=== PATIENT | male | born 1985 | race American Indian/Alaskan Native ===

== ENCOUNTER 2018-11-23 10:49 | Emergency (ER) | payer SELFPAY ==
[2018-11-23 11:03] VITALS: BP 119/69; PULSE 70; RESP 18; TEMP 98; O2SAT 99
[2018-11-23] MEDS ORDERED: Sodium Chloride 0.9% 1,000 ML IV ONE (11:42)
[2018-11-23] MEDS ORDERED: Sodium Chloride 0.9% 1,000 ML ONE (11:50)
[2018-11-23 12:17] LABS: BASO % 0.4 % (0.0-2.0); EOS # 0.1 K/uL (0.0-0.7); EOS % 1.5 % (0.0-4.0); HEMOGLOBIN 14.1 g/dL (12.0-18.0); LYMPH # 1.6 K/uL (1.0-4.3); LYMPH % 19.8 % (20.0-40.0); MEAN CELL VOLUME 92.6 fL (80.0-94.0); MEAN CORPUSCULAR HEMOGLOBIN 29.8 pg (27.0-31.0); MEAN CORPUSCULAR HGB CONC 32.1 g/dL (33.0-37.0); MEAN PLATELET VOLUME 9.2 fL (7.2-11.7); MONO # 0.6 K/uL (0.0-0.8); MONO % 7.7 % (0.0-10.0); NEUT # 5.6 K/uL (1.8-7.0); NEUT % 70.6 % (50.0-75.0); NRBC % 0.1 % (0.0-2.0); RBC 4.74 Mil/uL (4.40-5.90); RED CELL DISTRIBUTION WIDTH 14.2 % (11.5-14.5)
--- NOTE | 2018-11-23 12:26 | C.PDOC ---
History Of Present Illness Patient is a 33 year old male, mukund, who presents to ED for intermittent abdominal pain with associated nausea that began 3 days ago. Patient states that he never has had these symptoms before. He admits to drinking alcohol this week end. He denies any vomiting, diarrhea, or dysuria. Time Seen by Provider: 11/23/18 11:03 Chief Complaint (Nursing): Abdominal Pain History Per: Patient, EMS History/Exam Limitations: no limitations Onset/Duration Of Symptoms: Days (3) Current Symptoms Are (Timing): Still Present Associated Symptoms: Nausea. denies: Vomiting, Diarrhea, Urinary Symptoms Recent travel outside of the [place]: No Additional History Per: Patient, EMS Past Medical History Reviewed: Historical Data, Nursing Documentation, Vital Signs Vital Signs: Last Vital Signs Temp 98 F 11/23/18 10:57 Pulse 70 11/23/18 10:57 Resp 18 11/23/18 10:57 BP 119/69 11/23/18 10:57 Pulse Ox 99 11/23/18 10:57 - Medical History PMH: No Chronic Diseases Surgical History: Cholecystectomy - [facility] Procedures EXTIRPATION OF MATTER FROM COMMON BILE DUCT, ENDO (10/07/15) RELEASE PERITONEUM, PERCUTANEOUS ENDOSCOPIC APPROACH (10/07/15) RESECTION OF GALLBLADDER, PERCUTANEOUS ENDOSCOPIC APPROACH (10/07/15) ROBOTIC ASSISTED PROCEDURE OF TRUNK, PERC ENDO APPROACH (10/07/15) Family History: States: Unknown Family Hx - Social History Hx Tobacco Use: Yes Hx Alcohol Use: No Hx Substance Use: Yes (PCP use on 10/04/2012) - Immunization History Hx Tetanus Toxoid Vaccination: Yes Hx Influenza Vaccination: No Hx Pneumococcal Vaccination: No Review Of Systems Gastrointestinal: Positive for: Nausea, Abdominal Pain (intermittent). Negative for: Vomiting, Diarrhea Genitourinary: Negative for: Dysuria Physical Exam - Physical Exam Appears: Non-toxic, Other (mild discomfort) Skin: Normal Color, Warm, Dry Head: Atraumatic, Normacephalic Oral Mucosa: Moist Neck: Normal ROM, Supple Chest: Symmetrical, No Deformity Cardiovascular: Rhythm Regular, No Murmur Respiratory: Normal Breath Sounds, No Rales, No Rhonchi, No Wheezing Gastrointestinal/Abdominal: Tenderness (Epigastric and LUQ ), No Guarding, No Rebound, No Other (McBurney's and Mendoza's ) Extremity: Normal ROM Neurological/Psych: Oriented x3, Normal Speech, Normal Cognition ED Course And Treatment - Laboratory Results Result Diagrams: 11/23/18 12:11 11/23/18 12:11 O2 Sat by Pulse Oximetry: 99 (on RA) Pulse Ox Interpretation: Normal Progress Note: Plan: Labs. Urinalysis. IV Fluids. Pepcid 20mg IVP Disposition Counseled Patient/Family Regarding: Studies Performed, Diagnosis, Need For Followup, Rx Given - Disposition Referrals: [facility] [Outside] Disposition: HOME/ ROUTINE Disposition Time: 14:00 Condition: STABLE Additional Instructions: FOLLOW UP WITH YOUR DOCTOR/CLINIC IN 1-2 DAYS USE MEDICATIONS DIRECTED RETURN TO ER IF SYMPTOMS WORSEN Prescriptions: Famotidine [Pepcid] 20 mg PO BID PRN #15 tab PRN Reason: abdominal Instructions: Stomach Ache and Stomach Upset Forms: [employer] (Kyrgyz) Print Language: BOTSWANAN - Clinical Impression Clinical Impression: Epigastric abdominal pain - Scribe Statement Kyra Rodriguez All medical record entries made by the Scribe were at my direction and perso dalila dictated by me. I have reviewed the chart and agree that the record accurately reflects my personal performance of the history, physical exam, medical decision making, and the department course for this patient. I have also personally directed, reviewed, and agree with the discharge instructions and disposition.
[2018-11-23 12:27] LABS: URINE BILIRUBIN NEGATIVE (NEGATIVE); URINE BLOOD NEGATIVE (NEGATIVE); URINE CLARITY Hazy (Clear); URINE COLOR Yellow (YELLOW); URINE GLUCOSE (UA) NORMAL (Normal); URINE LEUKOCYTE ESTERASE NEG Leu/uL (Negative); URINE PROTEIN NEGATIVE (NEGATIVE); URINE UROBILINOGEN NORMAL mg/dL (0.2-1.0)
[2018-11-23 12:31] LABS: ALB/GLOB RATIO 1.2 (1.0-2.1); ALBUMIN 3.9 g/dL (3.5-5.0); ALT/SGPT 204 U/L (21-72); AST/SGOT 138 U/L (17-59); BLOOD UREA NITROGEN 7 mg/dL (9-20); CALCIUM 8.6 mg/dl (8.6-10.4); GFR NON-AFRICAN AMERICAN > 60; LIPASE 80 U/L (23-300)
== END 2018-11-23 14:19 | disposition home or self-care (01) ==
LOC: C.ER 10:49
DX: R10.13 Epigastric pain (principal)
CPT/HCPCS: 80053; 81001; 83690; 85025; 96361; 96374; 99284; J7030

== ENCOUNTER 2019-01-19 19:57 | Emergency (ER) | payer SELFPAY ==
[2019-01-19 20:17] VITALS: BP 125/78; PULSE 74; RESP 20; TEMP 98.9; O2SAT 96
--- NOTE | 2019-01-19 20:23 | C.PDOC ---
History Of Present Illness 33-year-old male presents to the ED for evaluation of vague anterior chest wall discomfort and vague abdominal discomfort for 5 minutes. Patient states he has abdominal pain because he is hungry. Patient has history of cannabis and PCP abuse. Patient does not offer any additional complaints at this time. Time Seen by Provider: 01/19/19 20:20 Chief Complaint (Nursing): Abdominal Pain History Per: Patient History/Exam Limitations: no limitations Onset/Duration Of Symptoms: Mins Current Symptoms Are (Timing): Still Present Additional History Per: Patient Past Medical History Reviewed: Historical Data, Nursing Documentation, Vital Signs Vital Signs: Last Vital Signs Temp 98.9 F 01/19/19 20:07 Pulse 74 01/19/19 20:07 Resp 20 01/19/19 20:07 BP 125/78 01/19/19 20:07 Pulse Ox 96 01/19/19 20:07 Primary Care Provider: FAMILY PROVIDER,NO - Medical History PMH: No Chronic Diseases Surgical History: Cholecystectomy - [facility] Procedures EXTIRPATION OF MATTER FROM COMMON BILE DUCT, ENDO (10/07/15) RELEASE PERITONEUM, PERCUTANEOUS ENDOSCOPIC APPROACH (10/07/15) RESECTION OF GALLBLADDER, PERCUTANEOUS ENDOSCOPIC APPROACH (10/07/15) ROBOTIC ASSISTED PROCEDURE OF TRUNK, PERC ENDO APPROACH (10/07/15) Family History: States: Unknown Family Hx - Social History Hx Tobacco Use: Yes Hx Alcohol Use: No Hx Substance Use: Yes (PCP use on 10/04/2012) - Immunization History Hx Tetanus Toxoid Vaccination: Yes Hx Influenza Vaccination: No Hx Pneumococcal Vaccination: No Review Of Systems Cardiovascular: Positive for: Other (vague anterior chest wall discomfort ) Gastrointestinal: Positive for: Other (vague abdominal discomfort ) Physical Exam - Physical Exam Appears: Non-toxic, No Acute Distress, Other (strong marijuana odor noted ) Skin: Normal Color, Warm, Dry Head: Atraumatic, Normacephalic Eye(s): bilateral: Normal Inspection, PERRL, EOMI Oral Mucosa: Moist Neck: Supple Chest: Symmetrical, No Deformity, Tenderness (mild, to pectoralis muscle ) Cardiovascular: Rhythm Regular, No Murmur Respiratory: Normal Breath Sounds, No Rales, No Rhonchi, No Wheezing Gastrointestinal/Abdominal: Soft, No Tenderness, No Guarding, No Rebound Extremity: Normal ROM, Capillary Refill (less than 2 seconds ) Neurological/Psych: Other (appears confused and intoxicated ) ED Course And Treatment ECG: Interpreted By Me ECG Rhythm: Sinus Rhythm ECG Interpretation: Normal Rate From EC O2 Sat by Pulse Oximetry: 96 (on RA) Pulse Ox Interpretation: Normal Progress Note: Motrin PO given. Medical Decision Making Medical Decision Making: vague anterior chest wall discomfort, muscular, from "starting to work out" normal EKG costochondritis Vague abd discomfort benign abd "from 5 minues- I'm hungry" Psych/Tox: seems like marinuana/PCP behavior h/o same no acute interventions required. Disposition Doctor Will See Patient In The: Office Counseled Patient/Family Regarding: Studies Performed, Diagnosis - Disposition Referrals: [facility] [Outside] [facility] [Outside] [facility] [Outside] [facility] [Outside] Disposition: HOME/ ROUTINE Disposition Time: 20:23 Condition: GOOD Additional Instructions: motrin as needed for muscular discomforts normal EKG today avoid PCP/Marijuana abuse seek Counseling/Detox as needed. Instructions: Costochondritis Forms: [facility] (Palauan) - Clinical Impression Clinical Impression: Chest wall discomfort - Scribe Statement The provider has reviewed the documentation as recorded by the Scribe (Qing Millan) Provider Attestation: All medical record entries made by the Scribe were at my direction and personally dictated by me. I have reviewed the chart and agree that the record accurately reflects my personal performance of the history, physical exam, medical decision making, and the department course for this patient. I have also personally directed, reviewed, and agree with the discharge instructions and disposition.
== END 2019-01-19 20:29 | disposition home or self-care (01) ==
LOC: C.ER 19:57
DX: R07.89 Other chest pain (principal)